=== PATIENT | male | born 1955 | race Caucasian/White ===

== ENCOUNTER 2016-12-26 16:25 | Inpatient (IN) | payer OTHER ==
[2016-12-26] MEDS ORDERED: SODIUM CHLORIDE 500 ML IV STA (16:42)
[2016-12-26 17:18] LABS: BASOPHIL 0.5 % (0-2.0); EOSINOPHIL 2.6 % (0-4.5); MCHC 33.7 g/dl (32.0-35.9); MEAN CELL VOLUME 86.1 fl (80-96); MEAN PLT VOLUME 8.7 fl (7.5-11.1); NEUTROPHILS 74.7 % (42.8-82.8); PLATELET COUNT 196 K/MM3 (134-434); RDW 14.1 % (11.9-15.9); WHITE BLOOD COUNT 12.8 K/mm3 (4.0-10.0)
[2016-12-26 17:35] LABS: INR 1.19 (0.82-1.09); PROTHROMBIN TIME (PATIENT) 13.1 SEC (9.98-11.88)
[2016-12-26 17:48] LABS: ALBUMIN 3.5 g/dl (3.4-5.0); ALK PHOS 85 U/L (45-117); ANION GAP 5 (8-16); BILIRUBIN,TOTAL 0.3 mg/dL (0.2-1.0); CALCIUM 8.9 mg/dL (8.5-10.1); CO2 28 mmol/L (21-32); GLUCOSE,RANDOM 130 mg/dL (74-106); SGOT/AST 16 U/L (15-37); SGPT/ALT 17 U/L (12-78); TOT PROT 6.5 g/dl (6.4-8.2)
[2016-12-26] MEDS ORDERED: CEFTRIAXONE 50 ML IVPB ONE (18:15)
--- NOTE | 2016-12-26 18:15 | CON.GI ---
Consult Consult Specialty:: Gastroenterology Referred by:: Dr Greta Andrew/; Tiffanie Reason for Consultation:: postpolypectomy bleeding - History of Present Illness History of Present Illness: 61 y/o male with PMH of HTN and pyelonephritis under went colonoscopy with polypectomy of 6 polyps a week ago. Yesterday he developed rectal bleeding.l He went to ER and was discharged after being observed to have no further bleeding and by rectal exam and stool guaiac was negative. He had stable vital sign ACatscan was done which revealed no evidence of bleeding. He was discharged. At home he again had rectal bleeding twice. He went to the offivce for ff-up In the office complained that he was dizzy and weak. He denied chest pain nor SOB. He was noted to have orthostatic changes. Aldo león refused to take the ambulance. I offered that I drive him to the ED but he refused. He took a cab. In the ER his Hgb dropped to 9.4. He did not bleed since 6 o'clock this morning. He denies, Aspirin and NSAID use. He was admitted for blood transfusion and further observation. - Past Medical History Cardio/Vascular: Yes: HTN Renal/: Yes: Renal Failure, Renal Calculi Endocrine: Yes: Diabetes Mellitus - Alcohol/Substance Use Hx Alcohol Use: No - Smoking History Smoking history: Current every day smoker Have you smoked in the past 12 months: No Aproximately how many cigarettes per day: 4 Home Medications - Allergies Allergies/Adverse Reactions: Allergies Allergy/AdvReac Type Severity Reaction Status Date / Time aspirin Allergy Verified 12/26/16 16:30 contrast Allergy Uncoded 12/26/16 16:30 - Home Medications Home Medications: Ambulatory Orders Linagliptin [Tradjenta] 5 mg PO DAILY 01/03/16 Amlodipine Besylate [Norvasc -] 5 mg PO DAILY tablet 03/01/16 Ciprofloxacin [Cipro (Restricted To Id)] 500 mg PO Q12H #20 tablet 12/25/16 Pantoprazole Sodium [Protonix] 40 mg PO DAILY 12/25/16 Family Disease History - Family Disease History Family Disease History: Other: Father (Colon CA- ) Review of Systems - Review of Systems Constitutional: denies: Fever Eyes: denies: Blind Spots HENT: denies: Difficult Swallowing, Throat Pain Cardiovascular: denies: Chest Pain Respiratory: denies: Cough Gastrointestinal: reports: Rectal Bleeding. denies: Abdominal Pain, Bloating, Vomiting Blood Physical Exam-GI Vital Signs: Vital Signs Temperature 98.0 F 12/26/16 16:26 Pulse Rate 102 H 12/26/16 16:26 Respiratory Rate 20 12/26/16 16:26 Blood Pressure 143/88 12/26/16 16:26 O2 Sat by Pulse Oximetry (%) 99 12/26/16 16:26 Constitutional: No: Well Nourished Eyes: No: Conjunctiva Clear HENT: No: Atraumatic Neck: No: Trachea Midline Cardiovascular: No: Regular Rate and Rhythm Respiratory: No: CTA Bilaterally ...Palpate: Yes: Soft. No: Firm/Rigid, Guarding, Hepatomegaly, Mass, Pulsatile Mass, Splenomegaly, Tenderness Labs: CBC, BMP 12/26/16 17:00 INR, PTT INR 1.19 (0.82-1.09) H 12/26/16 17:00 Problem List - Problems (1) Post-polypectomy bleeding Assessment/Plan: vs diverticular bleeding R> transfuse 1 unit PRBC clear liquids if bleeding is persistent will undergo colonoscopy to [facility] hydration Code(s): [id number] -
--- NOTE | 2016-12-26 18:17 | PDOC ---
History of Present Illness <Vik Carrillo - Last Filed: 12/26/16 19:23> - History of Present Illness Initial Comments: 12/26/16 18:30 Patient is a 61 year old male with significant medical hx of bladder CA (S/P TURP 2006), right staghorn calculus (s/p lithotripsy and nephrostomy tube 2015), left pyelonephritis (left sided ureteral stent in place), IDDM, and HTN who has been sent to the ED from GI office for repeat CBC and fluids. Today the patient was seen in GI office for follow up appointment after being seen in the ED last night for bloody stools. Patient was complaining of dizziness and lightheadedness, which worsens after standing, and he was referred to the ED for repeat CBC. The patient notes that he only had one episode of blood per rectum today with formed stool. Denies fever, chills, abdominal pain, nausea, or vomiting. Yesterday in the ED the patient received an abdomen/pelvis CT which demonstrated bulky appearance of the mid ascending colon but without any evidence of diverticulitis or acute pathology within the abdomen or pelvis. He was also discharged on cipro for UTI. Patient had a colonoscopy on 12/17 and had multiple polypectomies by Dr. Dacosta. PCP: Greta Abreu MD GI: Boyd Dacosta MD Allergies: Aspirin, contrast <Wendi Carias - Last Filed: 12/26/16 20:35> - General Chief Complaint: Revisit, Lab Variance Stated Complaint: LOW BLOOD COUNT Time Seen by Provider: 12/26/16 16:42 Past History - Past Medical History Anemia: No Asthma: No Cancer: Yes (BLADDER TUMOR) Cardiac Disorders: No CVA: No COPD: No CHF: No Dementia: No Diabetes: Yes GI Disorders: Yes (rectal BLEEDING) Disorders: No HTN: Yes Hypercholesterolemia: No Kidney Stones: Yes Liver Disease: No Seizures: No Thyroid Disease: No - Surgical History Abdominal Surgery: No Appendectomy: No Cardiac Surgery: No Cholecystectomy: No Lung Surgery: No Neurologic Surgery: No Orthopedic Surgery: No - Psycho/Social/Smoking Cessation Hx Anxiety: No Suicidal Ideation: No Smoking History: Current every day smoker Have you smoked in the past 12 months: No Number of Cigarettes Smoked Daily: 4 Information on smoking cessation initiated: Yes 'Breaking Loose' booklet given: 12/26/16 Hx Alcohol Use: No Drug/Substance Use Hx: No Substance Use Type: None Hx Substance Use Treatment: No <Vik Carrillo - Last Filed: 12/26/16 19:23> <Wendi Carias - Last Filed: 12/26/16 20:35> - Past Medical History Allergies/Adverse Reactions: Allergies Allergy/AdvReac Type Severity Reaction Status Date / Time aspirin Allergy Verified 12/26/16 16:30 contrast Allergy Uncoded 12/26/16 16:30 Home Medications: Ambulatory Orders Linagliptin [Tradjenta] 5 mg PO DAILY 01/03/16 Amlodipine Besylate [Norvasc -] 5 mg PO DAILY tablet 03/01/16 Ciprofloxacin [Cipro (Restricted To Id)] 500 mg PO Q12H #20 tablet 12/25/16 Pantoprazole Sodium [Protonix] 40 mg PO DAILY 12/25/16 Review of Systems - Review of Systems Comments:: 12/26/16 18:31 CONSTITUTIONAL: No fever, no chills, no fatigue EYES: No visual changes ENT: No ear pain, no sore throat CARDIOVASCULAR: No chest pain, no palpitations RESPIRATORY: No cough, no SOB GI: Blood in stool. No abdominal pain, no nausea, no vomiting, no constipation, no diarrhea GENITOURINARY: No dysuria, no frequency, no hematuria MUSKULOSKELETAL: No backpain, no joint pain, no myalgias SKIN: No rash NEURO: Dizziness, lightheadedness. No headache <Wendi Carias - Last Filed: 12/26/16 20:35> *Physical Exam - Vital Signs Last Vital Signs Temp Pulse Resp BP Pulse Ox 98.0 F 102 H 20 143/88 99 12/26/16 16:26 12/26/16 16:26 12/26/16 16:26 12/26/16 16:26 12/26/16 16:26 <Vik Carrillo - Last Filed: 12/26/16 19:23> - Vital Signs Last Vital Signs Temp Pulse Resp BP Pulse Ox 98.5 F 84 18 103/74 100 12/26/16 18:24 12/26/16 18:24 12/26/16 18:24 12/26/16 18:24 12/26/16 18:24 - Physical Exam Comments: 12/26/16 18:31 CONSTITUTIONAL: Morbidly obese; in no apparent distress HEAD: Normocephalic; atraumatic EYES: PERRL; EOM intact ENMT: External appears normal; normal oropharynx NECK: Supple; non-tender; no cervical lymphadenopathy CARD: Normal S1, S2; no murmurs, rubs, or gallops RESP: Normal chest excursion with respiration; breath sounds clear and equal bilaterally; no wheezes, rhonchi, or rales ABD: Soft, non-distended; non-tender; reproducible ventral hernia; no palpable organomegaly EXT: +1 Pitting edema to lower extremities bilaterally; normal ROM in all four extremities; non-tender to palpation; distal pulses intact SKIN: Warm, dry, no rash NEURO: No focal neurological deficiencies <Wendi Carias - Last Filed: 12/26/16 20:35> Heart Score/ECG Review #1 12/26/16 20:34 Normal sinus rhythm at 93 bpm Normal ECG <Wendi Carias - Last Filed: 12/26/16 20:35> ED Treatment Course - LABORATORY CBC & Chemistry Diagram: 12/26/16 17:00 12/26/16 17:00 - ADDITIONAL ORDERS Additional order review: Laboratory Results 12/26/16 12/26/16 17:00 17:00 INR 1.19 H Crossmatch See Detail 12/26/16 17:00 RBC 3.23 L MCV 86.1 MCHC 33.7 RDW 14.1 MPV 8.7 Neutrophils % 74.7 Lymphocytes % 13.3 Monocytes % 8.9 Eosinophils % 2.6 Basophils % 0.5 - Medications Given in the ED: ED Medications Discontinued Medications Generic Name Dose Route Start Last Admin Trade Name Freq PRN Reason Stop Dose Admin Sodium Chloride 500 mls @ 500 mls/hr 12/26/16 16:42 12/26/16 17:17 Normal Saline - IV 12/26/16 17:41 500 mls/hr ASDIR STA Administration <Vik Carrillo - Last Filed: 12/26/16 19:23> - LABORATORY CBC & Chemistry Diagram: 12/26/16 17:00 12/26/16 17:00 - ADDITIONAL ORDERS Additional order review: Laboratory Results 12/26/16 12/26/16 12/26/16 17:00 17:00 17:00 INR 1.19 H Sodium 141 Potassium 4.3 Chloride 108 H Carbon Dioxide 28 Anion Gap 5 L BUN 29 H Creatinine 2.0 H Creat Clearance w eGFR 34.14 Random Glucose 130 H D Calcium 8.9 Total Bilirubin 0.3 D AST 16 D ALT 17 Alkaline Phosphatase 85 Total Protein 6.5 Albumin 3.5 Crossmatch See Detail 12/26/16 17:00 RBC 3.23 L MCV 86.1 MCHC 33.7 RDW 14.1 MPV 8.7 Neutrophils % 74.7 Lymphocytes % 13.3 Monocytes % 8.9 Eosinophils % 2.6 Basophils % 0.5 - RADIOLOGY Radiograph Interpretation: 12/26/16 20:01 Chest X-Ray Impression: No acute disease. Reported By: Can Alarcon MD - Medications Given in the ED: ED Medications Discontinued Medications Generic Name Dose Route Start Last Admin Trade Name Freq PRN Reason Stop Dose Admin Sodium Chloride 500 mls @ 500 mls/hr 12/26/16 16:42 12/26/16 17:17 Normal Saline - IV 12/26/16 17:41 500 mls/hr ASDIR STA Administration <Wendi Carias - Last Filed: 12/26/16 20:35> *DC/Admit/Observation/Transfer - Discharge Dispostion Admit: Yes - Attestations Physician Attestion: 12/26/16 19:23 The documentation was prepared by the scribe under my direct supervision. I have reviewed the documentation which correctly represents the findings, medical decision-making and critical action taken by me. <Vki Carrillo - Last Filed: 12/26/16 19:23> - Attestations Scribe Attestion: 12/26/16 18:33 Documentation prepared by Wendi Carias, acting as medical receptionist assistant for Vik Carrillo MD. <Wendi Carias - Last Filed: 12/26/16 20:35> Diagnosis at time of Disposition: GI bleed Qualifiers: GI bleed type/associated pathology: anorectal hemorrhage Qualified Code(s): K62.5 - Hemorrhage of anus and rectum - Referrals Referrals: Greta Abreu MD [Primary Care Provider] -
[2016-12-26] MEDS ORDERED: CEFTRIAXONE 50 ML ONE (18:26)
[2016-12-26] MEDS ORDERED: ACETAMINOPHEN 1000 MG/100 ML VIAL (NON FORMULARY) IVPB ONE (20:54)
[2016-12-26] MEDS ORDERED: PANTOPRAZOLE SODIUM 100 ML IVPB SCH (22:00)
[2016-12-26 23:51] VITALS: BMI 42.7
[2016-12-27] MEDS: SODIUM CHLORIDE 1,000 ML IV SCH ×2 (00:55→22:00)
[2016-12-27 02:28] LABS: MEAN CELL VOLUME 85.3 fl (80-96); MEAN PLT VOLUME 8.6 fl (7.5-11.1); PLATELET COUNT 164 K/MM3 (134-434); RDW 14.5 % (11.9-15.9)
[2016-12-27 02:47] LABS: ALBUMIN 3.1 g/dl (3.4-5.0); ALK PHOS 72 U/L (45-117); ANION GAP 7 (8-16); BILIRUBIN,TOTAL 0.6 mg/dL (0.2-1.0); CALCIUM 7.9 mg/dL (8.5-10.1); CO2 28 mmol/L (21-32); CREATININE 1.8 mg/dL (0.7-1.3); GLUCOSE,RANDOM 107 mg/dL (74-106); SGOT/AST 12 U/L (15-37); SGPT/ALT 13 U/L (12-78); TOT PROT 5.7 g/dl (6.4-8.2)
--- NOTE | 2016-12-27 08:21 | HP ---
Admitting History and Physical - Admission History of Present Illness: 61 y/o male with PMH of HTN and pyelonephritis under went colonoscopy with polypectomy of 6 polyps a week ago. Yesterday he developed rectal bleeding.l He went to ER and was discharged after being observed to have no further bleeding and by rectal exam and stool guaiac was negative. He had stable vital sign ACatscan was done which revealed no evidence of bleeding. He was discharged. At home he again had rectal bleeding twice. He went to dr lucio office for ff-up In the office complained that he was dizzy and weak. He denied chest pain nor SOB. He was noted to have orthostatic changes. - Past Medical History Cardiovascular: Yes: HTN Gastrointestinal: Yes: Diverticulosis, GERD, Other (polyps) Renal/: Yes: Renal Failure, Renal Calculi Endocrine: Yes: Diabetes Mellitus - Smoking History Smoking history: Current every day smoker Have you smoked in the past 12 months: No Aproximately how many cigarettes per day: 4 - Alcohol/Substance Use Hx Alcohol Use: No Home Medications - Allergies Allergies/Adverse Reactions: Allergies Allergy/AdvReac Type Severity Reaction Status Date / Time aspirin Allergy Verified 12/26/16 16:30 contrast Allergy Uncoded 12/26/16 16:30 - Home Medications Home Medications: Ambulatory Orders Linagliptin [Tradjenta] 5 mg PO DAILY 01/03/16 Amlodipine Besylate [Norvasc -] 5 mg PO DAILY tablet 03/01/16 Ciprofloxacin [Cipro (Restricted To Id)] 500 mg PO Q12H #20 tablet 12/25/16 Pantoprazole Sodium [Protonix] 40 mg PO DAILY 12/25/16 Family Disease History - Family Disease History Family Disease History: Other: Father (Colon CA- ) Review of Systems - Review of Systems Cardiovascular: denies: Chest Pain Respiratory: denies: SOB Gastrointestinal: reports: Nausea, Rectal Bleeding. denies: Abdominal Pain, Vomiting Physical Examination Vital Signs: Vital Signs Temperature 97.9 F 12/27/16 08:08 Pulse Rate 74 12/27/16 08:08 Respiratory Rate 16 12/27/16 08:08 Blood Pressure 126/72 12/27/16 08:08 O2 Sat by Pulse Oximetry (%) 100 12/26/16 22:22 Cardiovascular: Yes: Regular Rate and Rhythm Respiratory: Yes: Regular, CTA Bilaterally Gastrointestinal: Yes: Normal Bowel Sounds, Soft Labs: CBC, BMP 12/27/16 02:00 12/27/16 02:06 Problem List - Problems (1) GI bleed Assessment/Plan: FOLLOW CBC PPI' GI CONSULT Code(s): K92.2 - GASTROINTESTINAL HEMORRHAGE, UNSPECIFIED Qualifiers: GI bleed type/associated pathology: anorectal hemorrhage Qualified Code (s): K62.5 - Hemorrhage of anus and rectum (2) Post-polypectomy bleeding Assessment/Plan: ABOVE Code(s): [id number] - (3) Diabetes Assessment/Plan: [facility] Code(s): E11.9 - TYPE 2 DIABETES MELLITUS WITHOUT COMPLICATIONS Qualifiers: Diabetes mellitus type: type 2 Diabetes mellitus complication status: with kidney complications Diabetes mellitus complication detail: with chronic kidney disease Chronic kidney disease stage: stage 4 (severe) (4) CKD (chronic kidney disease) Assessment/Plan: CHRONIC Code(s): N18.9 - CHRONIC KIDNEY DISEASE, UNSPECIFIED
[2016-12-27] MEDS ORDERED: SODIUM CHLORIDE 100 ML IVPB ONE ×2 (08:47→21:31)
[2016-12-27] MEDS ORDERED: PANTOPRAZOLE SODIUM 40 MG VIAL ONE ×2 (08:47→21:30)
[2016-12-27] MEDS: amLODIPine BESYLATE 5 MG TABLET (FP) PO SCH (09:46)
[2016-12-27] MEDS: PANTOPRAZOLE SODIUM 40 MG in SODIUM CHLORIDE 100 ML IVPB SCH ×2 (09:46→21:43)
[2016-12-27] MEDS: INSULIN (NOVOLOG) ASPART 100 UNITS/ML 10ML VIAL SQ SCH ×3 (11:07→21:43)
--- NOTE | 2016-12-27 11:54 | EKG ---
Test Reason : Blood Pressure : / mmHG Vent. Rate : 093 BPM Atrial Rate : 093 BPM P-R Int : 154 ms QRS Dur : 076 ms QT Int : 370 ms P-R-T Axes : 066 042 042 degrees QTc Int : 460 ms NORMAL SINUS RHYTHM NORMAL ECG WHEN COMPARED WITH ECG OF 21-FEB-2016 11:06, NO SIGNIFICANT CHANGE WAS FOUND Confirmed by KACY COLE MD ([id number]) on 12/27/2016 11:53:32 AM Referred By: Confirmed By:KACY COLE MD
--- NOTE | 2016-12-27 15:29 | CONSULT ---
Consult Consult Specialty:: Nephrology Reason for Consultation:: CKD - History of Present Illness Chief Complaint: rectal bleeding History of Present Illness: Pt is a 61 year old male with pmhx of obstructive uropathy and HTN who presents to the ER with rectal bleeding. He went for a colonoscopy and had some polyps removed. He began to have bleeding and went to the ER. He was found to be anemic and was admitted for transfusion. I was called to evaluate him for elevated creatinine. His renal function is not far from baseline. He denies dysuria or hematuria. He is awake and alert. - History Source History Provided By: Patient, Medical Record - Past Medical History Cardio/Vascular: Yes: HTN Gastrointestinal: Yes: Diverticulosis, GERD, Other (polyps) Renal/: Yes: Renal Failure, Renal Calculi Endocrine: Yes: Diabetes Mellitus - Alcohol/Substance Use Hx Alcohol Use: No - Smoking History Smoking history: Current every day smoker Have you smoked in the past 12 months: No Aproximately how many cigarettes per day: 4 Home Medications - Allergies Allergies/Adverse Reactions: Allergies Allergy/AdvReac Type Severity Reaction Status Date / Time aspirin Allergy Verified 12/26/16 16:30 contrast Allergy Uncoded 12/26/16 16:30 - Home Medications Home Medications: Ambulatory Orders Linagliptin [Tradjenta] 5 mg PO DAILY 01/03/16 Amlodipine Besylate [Norvasc -] 5 mg PO DAILY tablet 03/01/16 Ciprofloxacin [Cipro (Restricted To Id)] 500 mg PO Q12H #20 tablet 12/25/16 Pantoprazole Sodium [Protonix] 40 mg PO DAILY 12/25/16 Family Disease History - Family Disease History Family Disease History: Other: Father (Colon CA- ) Review of Systems - Review of Systems Constitutional: reports: No Symptoms Eyes: reports: No Symptoms HENT: reports: No Symptoms Neck: reports: No Symptoms Cardiovascular: reports: No Symptoms Gastrointestinal: reports: Rectal Bleeding Genitourinary: reports: No Symptoms Musculoskeletal: reports: No Symptoms Integumentary: reports: No Symptoms Neurological: reports: No Symptoms Endocrine: reports: No Symptoms Hematology/Lymphatic: reports: No Symptoms Psychiatric: reports: No Symptoms Physical Exam Vital Signs: Vital Signs Temperature 97.8 F 12/27/16 09:31 Pulse Rate 79 12/27/16 09:31 Respiratory Rate 16 12/27/16 09:31 Blood Pressure 124/65 07/27/17 09:31 O2 Sat by Pulse Oximetry (%) 100 12/27/16 09:00 Constitutional: Yes: Calm Eyes: Yes: Conjunctiva Clear HENT: Yes: Atraumatic Neck: Yes: Supple Cardiovascular: Yes: S1, S2 Respiratory: Yes: CTA Bilaterally Gastrointestinal: Yes: Normal Bowel Sounds, Soft Renal/: Yes: WNL Musculoskeletal: Yes: WNL Edema: No Neurological: Yes: Oriented Psychiatric: Yes: Oriented Labs: CBC, BMP 12/27/16 02:00 12/27/16 02:06 Laboratory Tests 02/24/16 02/28/16 02/29/16 07:15 12:50 06:30 WBC Hgb INR Sodium Potassium Chloride Carbon Dioxide Anion Gap BUN Creatinine 2.2 H 2.2 H 2.0 H 03/01/16 12/25/16 12/26/16 07:45 16:50 17:00 WBC Hgb 9.4 L D INR Sodium Potassium Chloride Carbon Dioxide Anion Gap BUN Creatinine 1.7 H 1.8 H 12/26/16 12/26/16 12/27/16 17:00 17:00 02:00 WBC 11.0 H Hgb 8.8 L INR 1.19 H Sodium Potassium Chloride Carbon Dioxide Anion Gap BUN Creatinine 2.0 H 12/27/16 02:06 WBC Hgb INR Sodium 139 Potassium 4.0 Chloride 104 Carbon Dioxide 28 Anion Gap 7 L BUN 24 H Creatinine 1.8 H Imaging - Results Chest X-ray: Report Reviewed Problem List - Problems (1) CKD (chronic kidney disease) Code(s): N18.9 - CHRONIC KIDNEY DISEASE, UNSPECIFIED (2) GI bleed Code(s): K92.2 - GASTROINTESTINAL HEMORRHAGE, UNSPECIFIED Qualifiers: GI bleed type/associated pathology: anorectal hemorrhage Qualified Code (s): K62.5 - Hemorrhage of anus and rectum (3) Post-polypectomy bleeding Code(s): [id number] - (4) Hypertension Code(s): I10 - ESSENTIAL (PRIMARY) HYPERTENSION Assessment/Plan Current Medications Generic Name Dose Route Start Last Admin Trade Name Freq PRN Reason Stop Dose Admin Amlodipine Besylate 5 mg 12/27/16 10:00 12/27/16 09:46 Norvasc - PO 5 mg DAILY JULISSA Administration Sodium Chloride 1,000 mls @ 83 mls/hr 12/26/16 21:00 12/27/16 00:55 Normal Saline - IV 83 mls/hr ASDIR JULISSA Administration Pantoprazole Sodium 40 mg/ 100 mls @ 200 mls/hr 12/27/16 07:03 12/27/16 09:46 Sodium Chloride IVPB 200 mls/hr BID JULISSA Administration Insulin Aspart 0 units 12/27/16 11:00 12/27/16 11:07 Novolog Vial SQ Not Given ACHS JULISSA Protocol Impression 1. CKD 2. GI bleed 3. HTN 4. hx bladder cancer 5. nephrolithiasis 6. anemia Plan - monitor hg - renal function not far from baseline - repeat labs in am - monitor blood pressure - can continue fluids for now Dr Almonte
--- NOTE | 2016-12-27 17:49 | PN ---
GI Progress Note Subjective: no active bleeding, no abdominal pain, no nausea and no vomiting. he received 3 units of PRBC , feels better - Objective Vital Signs: Vital Signs Temperature 97.8 F 12/27/16 09:31 Pulse Rate 79 12/27/16 09:31 Respiratory Rate 16 12/27/16 09:31 Blood Pressure 124/65 12/27/16 09:31 O2 Sat by Pulse Oximetry (%) 100 12/27/16 09:00 Constitutional: Well Nourished Eyes: Yes: Conjunctiva Clear HENT: Yes: Atraumatic Neck: Yes: Supple Cardiovascular: Yes: Regular Rate and Rhythm Respiratory: Yes: CTA Bilaterally ...Palpate: Yes: Soft. No: Firm/Rigid, Guarding, Hepatomegaly, Mass, Pulsatile Mass, Splenomegaly, Tenderness Labs: CBC, BMP 12/27/16 02:00 12/27/16 02:06 INR, PTT INR 1.19 (0.82-1.09) H 12/26/16 17:00 Problem List - Problems (1) Post-polypectomy bleeding Assessment/Plan: vs diverticular bleeding R> advance diet if no bleeding tomorrow of to discharge Code(s): [id number] -
[2016-12-27 20:08] LABS: MCH 29.1 pg (25.7-33.7); MEAN CELL VOLUME 85.7 fl (80-96); MEAN PLT VOLUME 8.9 fl (7.5-11.1); PLATELET COUNT 171 K/MM3 (134-434); RDW 14.5 % (11.9-15.9)
[2016-12-27 21:50] LABS: URINE APPEARANCE CLEAR; URINE BILIRUBIN NEGATIVE (NEGATIVE); URINE BLOOD 1+ (NEGATIVE); URINE COLOR STRAW; URINE GLUCOSE (UA) NEGATIVE (NEGATIVE); URINE KETONE NEGATIVE (NEGATIVE); URINE NITRITE NEGATIVE (NEGATIVE); URINE PROTEIN NEGATIVE (NEGATIVE); URINE UROBILINOGEN NEGATIVE mg/dL (0.2-1.0)
[2016-12-27 22:14] LABS: URINE LEUK ESTERASE 3+ (NEGATIVE)
[2016-12-27 22:21] LABS: URINE BACTERIA RARE /hpf (NONE SEEN); URINE MUCUS RARE; URINE RBC 1 /hpf (0-3); URINE WBC 11 /hpf (3-5)
[2016-12-28] MEDS: INSULIN (NOVOLOG) ASPART 100 UNITS/ML 10ML VIAL SQ SCH (06:09)
[2016-12-28] MEDS: INSULIN SLIDING SCALE (NOVOLOG) 1 VIAL SQ SCH ×2 (06:48→11:08)
[2016-12-28] MEDS ORDERED: PANTOPRAZOLE SODIUM 40 MG VIAL ONE (09:01)
[2016-12-28] MEDS ORDERED: SODIUM CHLORIDE 100 ML IVPB ONE (09:02)
[2016-12-28] MEDS: amLODIPine BESYLATE 5 MG TABLET (FP) PO SCH (09:04)
[2016-12-28] MEDS: PANTOPRAZOLE SODIUM 40 MG in SODIUM CHLORIDE 100 ML IVPB SCH (09:04)
[2016-12-28 09:25] LABS: MCH 29.5 pg (25.7-33.7); MCHC 34.3 g/dl (32.0-35.9); MEAN CELL VOLUME 86.2 fl (80-96); MEAN PLT VOLUME 8.9 fl (7.5-11.1); PLATELET COUNT 209 K/MM3 (134-434); RDW 14.5 % (11.9-15.9)
[2016-12-28 09:44] VITALS: BP 142/98
[2016-12-28 10:30] LABS: PLATELET ESTIMATE ADEQUATE (NORMAL)
--- NOTE | 2016-12-28 12:12 | DS ---
Physical Examination Vital Signs: Vital Signs Temperature 98.2 F 12/28/16 09:00 Pulse Rate 80 12/28/16 09:00 Respiratory Rate 18 12/28/16 09:00 Blood Pressure 142/98 12/28/16 09:00 O2 Sat by Pulse Oximetry (%) 98 12/28/16 09:00 Findings/Remarks: NO COMPLAINTS Cardiovascular: Yes: Regular Rate and Rhythm Respiratory: Yes: Regular, CTA Bilaterally Gastrointestinal: Yes: Normal Bowel Sounds, Soft. No: Tenderness Labs: CBC, BMP 12/28/16 07:00 Discharge Summary Reason For Visit: GASTROINTESTINAL HEMORRHAGE Current Active Problems CKD (chronic kidney disease) (Acute) GI bleed (Acute) Post-polypectomy bleeding (Acute) Hospital Course: 61 y/o male with PMH of HTN and pyelonephritis under went colonoscopy with polypectomy of 6 polyps a week ago. Yesterday he developed rectal bleeding.l He went to ER and was discharged after being observed to have no further bleeding and by rectal exam and stool guaiac was negative. He had stable vital sign ACatscan was done which revealed no evidence of bleeding. He was discharged. At home he again had rectal bleeding twice. He went to dr lucio office for ff-up In the office complained that he was dizzy and weak. He denied chest pain nor SOB. He was noted to have orthostatic changes. - Past Medical History Cardiovascular: Yes: HTN Gastrointestinal: Yes: Diverticulosis, GERD, Other (polyps) Renal/: Yes: Renal Failure, Renal Calculi Endocrine: Yes: Diabetes Mellitus - Smoking History Smoking history: Current every day smoker Have you smoked in the past 12 months: No Aproximately how many cigarettes per day: 4 Problems (1) GI bleed Assessment/Plan: FOLLOW CBC--STABLE PPI' GI CONSULT Code(s): K92.2 - GASTROINTESTINAL HEMORRHAGE, UNSPECIFIED Qualifiers: GI bleed type/associated pathology: anorectal hemorrhage Qualified Code (s): K62.5 - Hemorrhage of anus and rectum (2) Post-polypectomy bleeding Assessment/Plan: ABOVE Code(s): [id number] - (3) Diabetes Assessment/Plan: [facility] Code(s): E11.9 - TYPE 2 DIABETES MELLITUS WITHOUT COMPLICATIONS Qualifiers: Diabetes mellitus type: type 2 Diabetes mellitus complication status: with kidney complications Diabetes mellitus complication detail: with chronic kidney disease Chronic kidney disease stage: stage 4 (severe) (4) CKD (chronic kidney disease) Assessment/Plan: CHRONIC Code(s): N18.9 - CHRONIC KIDNEY DISEASE, UNSPECIFIED - Instructions Referrals: Greta Abreu MD [Primary Care Provider] - 1 Week Disposition: HOME - Home Medications Comprehensive Discharge Medication List: Ambulatory Orders Linagliptin [Tradjenta] 5 mg PO DAILY 01/03/16 Amlodipine Besylate [Norvasc -] 5 mg PO DAILY tablet 03/01/16 Pantoprazole Sodium [Protonix] 40 mg PO DAILY 12/25/16
[2016-12-28 13:49] LABS: ANION GAP 7 (8-16); CALCIUM 8.4 mg/dL (8.5-10.1); CO2 30 mmol/L (21-32); CREATININE 1.7 mg/dL (0.7-1.3); GLUCOSE,RANDOM 141 mg/dL (74-106)
[2016-12-28 14:38] VITALS: PULSE 61; TEMP 98.1
== END 2016-12-28 16:00 | disposition home or self-care (01) | DRG 920 ==
LOC: JER 16:25 → JERBED 19:45 → J6S 23:43
PROVIDERS: ADMIT Family Medicine; ATTEND Family Medicine
PROC: 30233N1 Transfusion of Nonautologous Red Blood Cells into Peripheral Vein, Percutaneous Approach (ICD-10-PCS; principal; 2016-12-26)
DX: K91.840 Postprocedural hemorrhage of a digestive system organ or structure following a digestive system procedure (principal); K92.2 Gastrointestinal hemorrhage, unspecified; N18.4 Chronic kidney disease, stage 4 (severe); Y83.8 Other surgical procedures as the cause of abnormal reaction of the patient, or of later complication, without mention of misadventure at the time of the procedure; E11.22 Type 2 diabetes mellitus with diabetic chronic kidney disease; I12.9 Hypertensive chronic kidney disease with stage 1 through stage 4 chronic kidney disease, or unspecified chronic kidney disease; K21.9 Gastro-esophageal reflux disease without esophagitis; K57.90 Diverticulosis of intestine, part unspecified, without perforation or abscess without bleeding; K63.5 Polyp of colon; F17.210 Nicotine dependence, cigarettes, uncomplicated; D64.9 Anemia, unspecified; Z87.442 Personal history of urinary calculi
CPT/HCPCS: 36415; 36430; 71010-TC; 74176-TC; 80048; 80053; 81003; 81015; 82272; 85025; 85027; 85610; 86850; 86900; 86901; 86922; 87086; 93005; 93010; 99282-25; 99284-25; P9038; P9058; Q9967

== ENCOUNTER 2017-12-16 05:21 | Day surgery (SDC) | payer OTHER ==
[2017-12-13 17:28] VITALS: BMI 46.0
--- NOTE | 2017-12-16 12:28 | OP ---
Operative Note - Note: Operative Date: 12/16/17 Pre-Operative Diagnosis: Right kidney stone Operation: Right ESWL Findings: 6 mm low pole Right kidney stone Post-Operative Diagnosis: Same as Pre-op Surgeon: Jarvis Hernández (no intraoperative complication) Anesthesia: Fractional Estimated Blood Loss (mls): 0
[2017-12-16 13:15] VITALS: TEMP 98.3
[2017-12-16 14:02] VITALS: BP 122/63; PULSE 70
--- NOTE | 2017-12-16 22:09 | OP ---
DATE OF OPERATION: 12/16/2017 PREOPERATIVE DIAGNOSIS: Right renal stone. POSTOPERATIVE DIAGNOSIS: Right renal stone. PROCEDURE: Right extracorporeal shock wave lithotripsy. ATTENDING: Miguel Delgado MD ANESTHESIA: Fractional. DESCRIPTION OF OPERATION: Patient was brought in the operating room, placed in supine position on the operating room table. Ultrasonography and fluoroscopy were performed. A 6-mm right lower pole stone is identified. At this point, anesthesia and preoperative antibiotics are administered. Shock wave lithotripsy is then performed; 2500 impulses at 20 joules of power were administered to the stone with excellent fragmentation under real-time ultrasonography and fluoroscopy. The disposition of the patient is to the recovery room. No complications were noted. MIGUEL DELGADO M.D. [id number]
== END 2017-12-16 14:03 | disposition home or self-care (01) ==
LOC: JASU-SURG 05:21
PROVIDERS: ATTEND Urology
PROC: 0TF3XZZ Fragmentation in Right Kidney Pelvis, External Approach (ICD-10-PCS; principal; 2017-12-16 11:45)
DX: N20.0 Calculus of kidney (principal)
CPT/HCPCS: 82962; 94760

== ENCOUNTER 2018-01-06 08:31 | Day surgery (SDC) | payer OTHER ==
[2018-01-02 11:35] VITALS: BMI 46.0
[2018-01-06] MEDS ORDERED: PROPOFOL 20 ML ONE ×2 (08:46→09:58)
[2018-01-06] MEDS ORDERED: ONDANSETRON 4 MG/2 ML VIAL IVPUSH PRN (09:07)
[2018-01-06] MEDS ORDERED: MIDAZOLAM HCL 2 MG/2 ML SINGLE DOSE VIAL ONE (09:15)
[2018-01-06] MEDS ORDERED: LACTATED RINGERS SOLUTION 1,000 ML IV SCH (09:15)
--- NOTE | 2018-01-06 10:54 | OP ---
Operative Note - Note: Operative Date: 01/06/18 Pre-Operative Diagnosis: left ureteral stent retained x 2+ years Operation: cystoscopy/laser lithotripsy of large bladder stone/ureteroscopic laser lithotripsy of ureteral stone involving calcified stent/left retrograde pyelogram/left ureteral stent placement Post-Operative Diagnosis: Other (bladder stone encasing distal left ureteral stent measuring >10cm; with calcified proximal stent) Surgeon: Jarvis Hernández Anesthesia: General Specimens Removed: bladder stone fragments Drains & Tubes with Location: 11/24 left ureteral stent
[2018-01-06 11:45] VITALS: TEMP 97.6
[2018-01-06 12:32] VITALS: BP 126/66; PULSE 78
--- NOTE | 2018-01-06 21:19 | OP ---
DATE OF OPERATION: 01/06/2018 PREOPERATIVE DIAGNOSIS: Left ureteral stent retained for greater than 2 years. POSTOPERATIVE DIAGNOSES: Calcified stent with large bladder stone, with calcified mid- and proximal ureteral stent. PROCEDURE: Cystoscopy, laser lithotripsy of large bladder stone, ureteroscopic laser lithotripsy of ureteral stone, left retrograde pyelogram, left ureteral stent placement. ATTENDING: Miguel Delgado MD ANESTHESIA: General. DESCRIPTION OF OPERATION: Patient was brought in the operating room, placed in supine position on the operating room table. Anesthesia and preoperative antibiotics were administered. At this point, cystoscopy was performed. A bladder stone measuring greater than 10 cm was noted involving the distal aspect of the ureteral stent. The stone extended proximally into the ureter. A wire was attempted to be passed proximally without success due to the stone burden at the ureteral orifice on the left side. The patient had laser lithotripsy utilizing the holmium laser to fragment the bladder stone. The fragmentation was done in a way that did not cut the distal left ureteral stent. Once the bladder stone was fragmented, an [employer] evacuator was utilized to remove all stone fragments, and these were sent to Pathology for analysis. An ureteroscope was then utilized, and the left ureteral orifice was intubated and a wire passed proximally. There was a high level of stones involving the ureteral stent. A retrograde pyelogram showed that the stone burden involved the length of the ureteral stent and proximal ureter. Laser lithotripsy of the distal ureteral stones encasing the ureteral stent was performed utilizing the holmium laser. Because of the amount of inflammation and manipulation, it was decided that it would be best to fragment the stone with extracorporeal shock wave lithotripsy in order to minimize trauma to the ureter and kidney. A stent measuring 6-Bel[place]ian and 24 cm was placed over the wire utilizing Seldinger technique. The patient was left with both the calcified stent and a new stent alongside each other in the left ureter. There were no complications noted. The patient tolerated the procedure very well. The disposition of the patient was to the recovery room. MIGUEL DELGADO M.D. [id number]
--- NOTE | 2018-01-08 10:05 | PATH ---
Surgical Pathology Report Patient Name: PAR[facility] DOBBINS [facility]. Rec. #: [id number] /Age/Gender: 1955 (Age: 62) / M Account: [id number] Location: [facility] Taken: 01/06/2018 Received: 01/06/2018 Reported: 01/08/2018 Physicians: Jarvis Hernández Specimen(s) Received BLADDER CALCULI Clinical History Calcified bladder stone Final Diagnosis BLADDER STONE, LASER LITHOTRIPSY: BLADDER CALCULI. MACROSCOPIC DIAGNOSIS. Electronically Signed Leticia Thomas M.D. Gross Description Received in formalin labeled "bladder stone," is a 2.5 x 1.8 x 0.3 cm aggregate of oliveros-yellow, fragmented calculi. The formalin is drained and the specimen is dried and sent for chemical analysis. /01/06/2018 saudi01/06/2018
== END 2018-01-06 12:40 | disposition home or self-care (01) ==
LOC: JASU-SURG 08:31
PROVIDERS: ATTEND Urology
PROC: 0T778DZ Dilation of Left Ureter with Intraluminal Device, Via Natural or Artificial Opening Endoscopic (ICD-10-PCS; 2018-01-06)
PROC: 0TP98DZ Removal of Intraluminal Device from Ureter, Via Natural or Artificial Opening Endoscopic (ICD-10-PCS; 2018-01-06)
PROC: 0TCB8ZZ Extirpation of Matter from Bladder, Via Natural or Artificial Opening Endoscopic (ICD-10-PCS; principal; 2018-01-06 10:00)
PROC: 0TF7XZZ Fragmentation in Left Ureter, External Approach (ICD-10-PCS; 2018-01-06 10:00)
DX: N21.0 Calculus in bladder (principal); N20.1 Calculus of ureter
CPT/HCPCS: 36415; 76000-TC-FY; 82360; 82962; 88300-TC

== ENCOUNTER 2018-02-10 13:56 | Day surgery (SDC) | payer OTHER ==
[2018-02-07 13:38] VITALS: BMI 46.0
[2018-02-10 14:50] VITALS: TEMP 98.9
[2018-02-10] MEDS ORDERED: MIDAZOLAM HCL 2 MG/2 ML SINGLE DOSE VIAL ONE ×2 (16:26)
[2018-02-10] MEDS ORDERED: PROPOFOL 20 ML ONE (16:27)
[2018-02-10] MEDS ORDERED: KETAMINE HCL 200 MG/20 ML VIAL ONE (16:40)
[2018-02-10] MEDS ORDERED: ESMOLOL HCL 100,000 MCG/10 ML VIAL ONE ×2 (16:45→17:07)
--- NOTE | 2018-02-10 17:15 | OP ---
Operative Note - Note: Operative Date: 02/10/18 Pre-Operative Diagnosis: Left Ren[place] stone Operation: Left ESWL Findings: 10 mm mid pole Left kidney stone Surgeon: Jarvis Hernández Anesthesia: Fractional Estimated Blood Loss (mls): 0
[2018-02-10 19:37] VITALS: BP 145/74; PULSE 88
--- NOTE | 2018-02-10 22:11 | OP ---
DATE OF OPERATION: 02/10/2018 PREOPERATIVE DIAGNOSIS: Left renal stone. POSTOPERATIVE DIAGNOSIS: Left renal stone. PROCEDURE: Left extracorporeal shock wave lithotripsy. ATTENDING: Miguel Delgado MD ANESTHESIA: Fractional. DESCRIPTION OF OPERATION: The patient was brought in the operating room and placed in a supine position on the operating room table. Ultrasonography and fluoroscopy were performed. The patient has a history of a retained left ureteral stent. The patient had the left ureteral stent for a period of greater than 2 years. Patient is status post lithotripsy of the distal aspect of the stent which had developed into a large bladder stone. There was encrustation to the proximal ureter. The distal aspect of the ureter had been fragmented utilizing the holmium laser with ureteroscopy. A bulky proximal stone was noted. At the time of the initial procedure for the bladder stone, a second stent was placed into the kidney. The stent was placed in order to preserve renal function. On ultrasonography and fluoroscopy, both stents were identified. The encrusted stent with a bulky stone was identified. There was a 10-mm mid-pole kidney stone involving the stent. Shock wave lithotripsy of the proximal coil of the retained stent was performed once anesthesia and antibiotics had been given; 3000 impulses at 20 joules of power were administered to the proximal stent. Fragmentation was noted. There were no complications noted. The patient tolerated the procedure very well. The disposition of the patient was to the recovery room. MIGUEL DELGADO M.D. [id number]
== END 2018-02-10 18:20 | disposition home or self-care (01) ==
LOC: JASU-SURG 13:56
PROVIDERS: ATTEND Urology
PROC: 0TF4XZZ Fragmentation in Left Kidney Pelvis, External Approach (ICD-10-PCS; principal; 2018-02-10 15:30)
DX: N20.0 Calculus of kidney (principal)

== ENCOUNTER 2022-04-06 04:14 | Day surgery (SDC) | payer OTHER ==
[2022-04-05 09:16] VITALS: BMI 40.3
[2022-04-06] MEDS ORDERED: ONDANSETRON 4 MG/2 ML VIAL ONE (12:01)
[2022-04-06] MEDS ORDERED: LIDOCAINE HCL/PF 2% SDV 5ML VIAL ONE (12:01)
[2022-04-06] MEDS ORDERED: PROPOFOL 20 ML ONE (12:01)
[2022-04-06] MEDS ORDERED: MIDAZOLAM HCL 2 MG/2 ML SINGLE DOSE VIAL ONE (12:01)
[2022-04-06] MEDS ORDERED: DEXAMETHASONE SOD PHOSPHATE 4 MG/1 ML VIAL ONE (12:01)
[2022-04-06] MEDS ORDERED: ceFAZolin SODIUM 1 GM VIAL ONE (13:30)
[2022-04-06] MEDS ORDERED: ceFAZolin SODIUM 1 GM VIAL IVPB ONE ×2 (13:32)
[2022-04-06] MEDS ORDERED: GENTAMICIN SO4 80 MG/2 ML VIAL IVPB ONE (13:38)
[2022-04-06] MEDS ORDERED: GENTAMICIN SO4 80 MG/2 ML VIAL ONE (13:44)
[2022-04-06] MEDS ORDERED: ONDANSETRON 4 MG/2 ML VIAL IVPUSH PRN (15:21)
[2022-04-06] MEDS ORDERED: oxyCODONE HCL 5 MG TABLET PO PRN (15:24)
[2022-04-06] MEDS ORDERED: LACTATED RINGERS SOLUTION 1,000 ML IV SCH (15:30)
[2022-04-06 18:29] VITALS: RESP 20; TEMP 97.6
[2022-04-06 18:36] VITALS: BP 138/82; PULSE 67
== END 2022-04-06 18:46 | disposition home or self-care (01) ==
LOC: JASU-SURG 04:14
PROVIDERS: ATTEND Urology
PROC: 0T9680Z Drainage of Right Ureter with Drainage Device, Via Natural or Artificial Opening Endoscopic (ICD-10-PCS; 2022-04-06)
PROC: 0TCB8ZZ Extirpation of Matter from Bladder, Via Natural or Artificial Opening Endoscopic (ICD-10-PCS; principal; 2022-04-06 11:00)
PROC: 0T7D8DZ Dilation of Urethra with Intraluminal Device, Via Natural or Artificial Opening Endoscopic (ICD-10-PCS; 2022-04-06 11:00)
DX: N21.0 Calculus in bladder (principal); N13.2 Hydronephrosis with renal and ureteral calculous obstruction; I10 Essential (primary) hypertension; E11.9 Type 2 diabetes mellitus without complications; Z79.84 Long term (current) use of oral hypoglycemic drugs
CPT/HCPCS: 36415; 76000-TC-FY; 82360; 87086; 87106; 88300-TC; 94760; C2617

== ENCOUNTER 2023-06-11 14:19 | Inpatient (IN) | payer OTHER ==
[2023-06-11 14:32] VITALS: BMI 42.7
[2023-06-11] MEDS ORDERED: FAMOTIDINE 20 MG/50 ML IVPB 20 MG/50 ML MG IVPB ONE ×2 (16:19→16:21)
[2023-06-11] MEDS ORDERED: SODIUM CHLORIDE 0.9% 500 ML INFUS.BAG IV ONE (16:19)
[2023-06-11] MEDS ORDERED: MAG HYDROX/AL HYDROX/SIMETH 30 ML UNIT-DOSE CUP PO ONE (16:19)
[2023-06-11] MEDS ORDERED: MAG HYDROX/AL HYDROX/SIMETH 30 ML UNIT-DOSE CUP ONE (16:21)
[2023-06-11 16:58] LABS: BASO % 0.3 % (0-2.0); EOS % 0.3 % (0-4.5); HEMATOCRIT 43.1 % (35.4-49); HEMOGLOBIN 14.1 GM/dL (11.7-16.9); LYMPH % 4.7 % (8-40); MCHC 32.8 g/dl (32.0-35.9); MEAN CELL VOLUME 88.4 fl (80-96); MONO % 7.2 % (3.8-10.2); NEUT % 87.5 % (42.8-82.8); PLATELET COUNT 221 10^3/uL (134-434); RBC 4.87 M/mm3 (4.00-5.60); RDW 13.9 % (11.9-15.9); WHITE BLOOD COUNT 14.8 K/mm3 (4.0-10.0)
[2023-06-11 17:21] LABS: POTASSIUM 5.3 mmol/L (3.5-5.1)
[2023-06-11 17:23] LABS: ALBUMIN 3.7 g/dl (3.4-5.0); CALCIUM 9.7 mg/dL (8.5-10.1)
[2023-06-11 17:24] LABS: BLOOD UREA NITROGEN 36.8 mg/dL (7-18)
[2023-06-11 17:27] LABS: CREATININE 3.7 mg/dL (0.55-1.3)
[2023-06-11 17:28] LABS: BILIRUBIN,TOTAL 0.4 mg/dL (0.2-1); TOT PROT 7.7 g/dl (6.4-8.2)
[2023-06-11] MEDS ORDERED: ACETAMINOPHEN 1000 MG/100 ML BAG IVPB ONE (17:31)
[2023-06-11] MEDS ORDERED: PIPERACILLIN/TAZOB 4.5 GM 4.5 GM in DEXTROSE 5%-WATER 100 ML IVPB ONE (19:12)
[2023-06-11] MEDS ORDERED: VANCOMYCIN 1,000 MG in DEXTROSE 5%-WATER - 250 ML IVPB ONE (19:12)
[2023-06-11] MEDS ORDERED: PIPERACILLIN/TAZOB 4.5 GM 4.5 GM/100 ML BAG IVPB ONE (19:59)
[2023-06-11] MEDS ORDERED: SODIUM ZIRCONIUM CYCLOSILICATE (LOKELMA) 5 GM PACKET PO ONE (20:34)
[2023-06-11] MEDS ORDERED: morphine CARPU-JECT 4 MG/1 ML DISP.SYRIN IVPUSH ONE (20:47)
[2023-06-11] MEDS ORDERED: ONDANSETRON 4 MG/2 ML VIAL IVPUSH ONE (20:47)
[2023-06-11] MEDS ORDERED: LACTATED RINGERS SOLUTION 1,000 ML/1,000 ML INFUS.BAG IV SCH (21:00)
[2023-06-11] MEDS ORDERED: SODIUM ZIRCONIUM CYCLOSILICATE (LOKELMA) 10 GM PACKET ONE (21:00)
[2023-06-11] MEDS ORDERED: DOCUSATE SODIUM 100 MG CAPSULE (FP) PO PRN (22:28)
[2023-06-11] MEDS ORDERED: ACETAMINOPHEN 325 MG TABLET (FP) PO PRN (22:28)
[2023-06-12] MEDS: INSULIN ASPART SLIDING SCALE (NOVOLOG) 1 VIAL SQ SCH ×4 (08:25→22:20)
[2023-06-12] MEDS ORDERED: TAMSULOSIN HCL 0.4 MG CAP PO SCH (08:30)
[2023-06-12] MEDS ORDERED: PIPERACILLIN/TAZOB 2.25 GM 2.25 GM in DEXTROSE 5%-WATER - 50 ML IVPB SCH (10:00)
[2023-06-12] MEDS ORDERED: VANCOMYCIN/WATER 1250 MG 1,250 MG/250 ML BAG IVPB ONE (10:00)
[2023-06-12] MEDS ORDERED: LACTATED RINGERS SOLUTION 1,000 ML IV SCH ×2 (10:45→12:53)
[2023-06-12] MEDS ORDERED: oxyCODONE HCL 5 MG TABLET PO PRN ×4 (10:45→12:53)
[2023-06-12] MEDS ORDERED: ONDANSETRON 4 MG/2 ML VIAL IVPUSH PRN ×2 (10:45→12:53)
[2023-06-12] MEDS ORDERED: PROMETHAZINE HCL 25 MG/1 ML VIAL IVPB PRN ×2 (10:45→12:53)
[2023-06-12] MEDS ORDERED: PROPOFOL 40 ML ONE (10:52)
[2023-06-12] MEDS ORDERED: DEXAMETHASONE SOD PHOSPHATE 4 MG/1 ML VIAL ONE (10:53)
[2023-06-12] MEDS ORDERED: ONDANSETRON 4 MG/2 ML VIAL ONE (10:53)
[2023-06-12] MEDS ORDERED: LIDOCAINE HCL/PF 2% SDV 5ML VIAL ONE (10:53)
[2023-06-12] MEDS ORDERED: MIDAZOLAM HCL 2 MG/2 ML SINGLE DOSE VIAL ONE (10:53)
[2023-06-12] MEDS ORDERED: SEVOFLURANE 250 ML BTL ONE (12:36)
[2023-06-12] MEDS ORDERED: ACETAMINOPHEN 325 MG TABLET (FP) PO PRN (12:53)
[2023-06-12] MEDS ORDERED: DOCUSATE SODIUM 100 MG CAPSULE (FP) PO PRN (12:53)
[2023-06-12] MEDS: PIPERACILLIN/TAZOB 2.25 GM 2.25 GM in DEXTROSE 5%-WATER - 50 ML IVPB SCH ×2 (16:25→18:01)
[2023-06-12 17:46] LABS: EPI CELLS 9 /uL (0-25.1); HYALINE CASTS 2 /uL (0-3.1); PH,URINE 5.5 (5.0-8.0); URINE APPEARANCE CLOUDY; URINE BACTERIA 30 /uL (0-1359); URINE BILIRUBIN NEGATIVE (NEGATIVE); URINE COLOR ORANGE; URINE GLUCOSE (UA) NEGATIVE (NEGATIVE); URINE KETONE NEGATIVE (NEGATIVE); URINE LEUK ESTERASE 3+ (NEGATIVE); URINE NITRITE NEGATIVE (NEGATIVE); URINE PROTEIN 2+ (NEGATIVE); URINE UROBILINOGEN 0.2 mg/dL (0.2-1.0); URINE WBC 1713 /uL (0-25.8)
[2023-06-12] MEDS: SODIUM CHLORIDE 0.45% 1,000 ML IV SCH (18:00)
[2023-06-12 18:33] LABS: URINE RBC 5210.7 /uL (0-23.9)
[2023-06-12] MEDS: TAMSULOSIN HCL 0.4 MG CAP PO SCH (21:19)
[2023-06-13] MEDS: PIPERACILLIN/TAZOB 2.25 GM 2.25 GM in DEXTROSE 5%-WATER - 50 ML IVPB SCH ×5 (02:45→17:40)
[2023-06-13] MEDS: INSULIN ASPART SLIDING SCALE (NOVOLOG) 1 VIAL SQ SCH ×4 (06:40→21:38)
[2023-06-13] MEDS: TAMSULOSIN HCL 0.4 MG CAP PO SCH ×2 (11:11→21:36)
[2023-06-13] MEDS: SODIUM CHLORIDE 0.45% 1,000 ML IV SCH (17:40)
[2023-06-13] MEDS ORDERED: INSULIN (NOVOLOG) ASPART 100 UNITS/ML 10ML VIAL ONE (21:04)
[2023-06-14] MEDS: PIPERACILLIN/TAZOB 2.25 GM 2.25 GM in DEXTROSE 5%-WATER - 50 ML IVPB SCH ×2 (01:14→10:40)
[2023-06-14] MEDS ORDERED: INSULIN (NOVOLOG) ASPART 100 UNITS/ML 10ML VIAL ONE (06:01)
[2023-06-14] MEDS: INSULIN ASPART SLIDING SCALE (NOVOLOG) 1 VIAL SQ SCH ×4 (06:09→21:46)
[2023-06-14 09:58] LABS: HEMOGLOBIN 11.8 GM/dL (11.7-16.9); MCH 29.1 pg (25.7-33.7); MCHC 32.7 g/dl (32.0-35.9); MEAN CELL VOLUME 88.9 fl (80-96); MEAN PLT VOLUME 8.6 fl (7.5-11.1); PLATELET COUNT 187 10^3/uL (134-434); RBC 4.05 M/mm3 (4.00-5.60); RDW 13.2 % (11.9-15.9); WHITE BLOOD COUNT 9.3 K/mm3 (4.0-10.0)
[2023-06-14] MEDS: TAMSULOSIN HCL 0.4 MG CAP PO SCH ×2 (10:39→21:46)
[2023-06-14] MEDS: SODIUM CHLORIDE 0.45% 1,000 ML IV SCH (20:36)
[2023-06-14 22:42] VITALS: RESP 18
[2023-06-15] MEDS: INSULIN ASPART SLIDING SCALE (NOVOLOG) 1 VIAL SQ SCH ×3 (06:17→17:03)
[2023-06-15] MEDS: TAMSULOSIN HCL 0.4 MG CAP PO SCH (09:23)
[2023-06-15 14:31] VITALS: BP 142/62; PULSE 72; TEMP 97.9
[2023-06-20 21:07] LABS: CA OXALATE MONOHYDR. 10 % (.); SIZE 9x6 mm (.); URIC ACID 90 % (.); WEIGHT 1206 mg (.)
== END 2023-06-15 16:30 | disposition home or self-care (01) | DRG 660 ==
LOC: JER 14:19 → JERBED 22:07 → J7W 06-12 08:03
PROVIDERS: ADMIT Internal Medicine; ATTEND Family Medicine
PROC: 0T768DZ Dilation of Right Ureter with Intraluminal Device, Via Natural or Artificial Opening Endoscopic (ICD-10-PCS; 2023-06-12)
PROC: 0TCB8ZZ Extirpation of Matter from Bladder, Via Natural or Artificial Opening Endoscopic (ICD-10-PCS; 2023-06-12)
PROC: 0TJB8ZZ Inspection of Bladder, Via Natural or Artificial Opening Endoscopic (ICD-10-PCS; principal; 2023-06-12 13:00)
DX: N13.2 Hydronephrosis with renal and ureteral calculous obstruction (principal); Z68.41 Body mass index [BMI] 40.0-44.9, adult; K21.9 Gastro-esophageal reflux disease without esophagitis; K57.90 Diverticulosis of intestine, part unspecified, without perforation or abscess without bleeding; E66.01 Morbid (severe) obesity due to excess calories; I12.9 Hypertensive chronic kidney disease with stage 1 through stage 4 chronic kidney disease, or unspecified chronic kidney disease; E11.22 Type 2 diabetes mellitus with diabetic chronic kidney disease; N18.4 Chronic kidney disease, stage 4 (severe); N17.9 Acute kidney failure, unspecified; E87.5 Hyperkalemia; D64.9 Anemia, unspecified; N40.0 Benign prostatic hyperplasia without lower urinary tract symptoms; Z85.51 Personal history of malignant neoplasm of bladder
CPT/HCPCS: 36415; 74176-TC; 76000-TC-FY; 80053; 81003; 82360; 82962; 83690; 85025; 85027; 87086; 88300-TC; 93005; 93010; 94760; 99285-25; C1758; C2617